=== PATIENT | female | born 1955 | race African-American/Black ===

== ENCOUNTER → 2017-05-18 | Outpatient (CLI) | payer OTHER ==
[~2017-05-18] MED LIST: COZAAR 25MG25 MG/TAB; FLEXERIL 1010 MG/TAB PO; GLUCOPHAGE500 MG/TAB; LEVOXYL0.025 MG; NORCO 325 MG-51 TAB PO; PRINIVIL2.5 MG; [UNRECOGNIZED DRUG - REMARK]
== END ==
LOC: MC.RAD 14:29
DX: Z12.31 Encounter for screening mammogram for malignant neoplasm of breast (principal)

== ENCOUNTER → 2019-02-11 | Outpatient (CLI) | payer OTHER | LOC: MC.RAD 09:06 | DX: Z12.31 Encounter for screening mammogram for malignant neoplasm of breast (principal) ==

== ENCOUNTER → 2021-02-03 | Outpatient (CLI) | payer OTHER | LOC: MC.RAD 01-27 09:15 | DX: Z12.31 Encounter for screening mammogram for malignant neoplasm of breast (principal) ==